=== PATIENT | female | born 1990 | race African-American/Black ===

== ENCOUNTER 2018-04-17 09:44 | Emergency (ER) | payer SELFPAY ==
[~2018-04-17] VITALS: Ht 157.5 cm; Wt 49.0 kg
[2018-04-17 09:47] VITALS: BP 128/66
[2018-04-17] MEDS ORDERED: KETOROLAC 60 MG/2 ML VIAL. IM ONE (10:30)
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
[2018-04-17] MEDS ORDERED: IBUP-1007 PO (11:00)
[2018-04-17] MEDS ORDERED: ORPH100T PO (11:00)
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
== END 2018-04-17 11:05 | disposition home or self-care (01) ==
LOC: ER 09:44
DX: M25.511 Pain in right shoulder (principal); G89.11 Acute pain due to trauma; Z91.040 Latex allergy status; V49.9XXA Car occupant (driver) (passenger) injured in unspecified traffic accident, initial encounter; Y93.89 Activity, other specified; Y92.89 Other specified places as the place of occurrence of the external cause; Y99.8 Other external cause status
CPT/HCPCS: 73030; 81025; 96372; 99283; J1885

== ENCOUNTER 2018-04-27 09:15 | Emergency (ER) | payer SELFPAY ==
[~2018-04-27 09:15] MED LIST: IBUP-1007 PO; ORPH100T PO
== END 2018-04-27 10:23 | disposition left against medical advice (07) ==
LOC: ER 09:15
DX: M79.671 Pain in right foot (principal); Z53.21 Procedure and treatment not carried out due to patient leaving prior to being seen by health care provider

== ENCOUNTER 2019-03-30 14:49 | Emergency (ER) | payer SELFPAY ==
[~2019-03-30] VITALS: Ht 157.5 cm; Wt 49.0 kg
[2019-03-30 16:39] VITALS: BP 143/67
[2019-03-30] MEDS ORDERED: predniSONE 10 MG TABLET PO ONE (16:45)
[2019-03-30] MEDS ORDERED: FAMOTIDINE 20 MG TABLET. PO ONE (16:45)
--- NOTE | 2019-03-30 16:51 | PHYS DOC ---
Past Medical History Past Medical History: No Pertinent History Past Surgical History: No Surgical History Alcohol Use: None Drug Use: None Adult General Chief Complaint Chief Complaint: ALLERGIC REACTION HPI HPI Patient is a 28 year old female who presents with states she usually only has allergic reaction such as hives and chest tightness and throat tightness and itching and burning of the eyes when she eats peanuts but not when she is around them. Today she states her boss had a big open can of peanuts in her office and she walked into her office and began having symptoms. She states she took 50 of Benadryl at 10 AM and her symptoms were way except for the eye itching and burning around her eyes. Review of Systems Review of Systems Eyes: Denies change in visual acuity, redness, or eye pain. itching [] All other systems were reviewed and found to be within normal limits, except as documented in this note. Current Medications Current Medications Current Medications Medications (Trade) Dose Ordered Sig/Oli Start Time Stop Time Status Last Admin Dose Admin Famotidine (Pepcid) 20 mg 1X ONCE 03/30/19 16:45 03/30/19 16:46 DC 03/30/19 16:49 20 MG Prednisone (Prednisone) 50 mg 1X ONCE 03/30/19 16:45 03/30/19 16:46 DC 03/30/19 16:49 50 MG Allergies Allergies Allergies Coded Allergies Type Severity Reaction Last Updated Verified peanut Allergy Severe ITCHING, 03/30/19 Yes latex Allergy Intermediate rash/hives 12/11/14 No Physical Exam Physical Exam Constitutional: Well developed, well nourished, no acute distress, non-toxic appearance. [] HENT: Normocephalic, atraumatic, bilateral external ears normal, oropharynx moist, no oral exudates, nose normal. [] Eyes: PERRLA, EOMI, conjunctiva normal, no discharge. Redness around eyes bilaterally. [] Neck: Normal range of motion, no tenderness, supple, no stridor. [] Cardiovascular:Heart rate regular rhythm, no murmur [] Lungs & Thorax: Bilateral breath sounds clear to auscultation [] Abdomen: Bowel sounds normal, soft, no tenderness, no masses, no pulsatile masses. [] Skin: Warm, dry, no erythema, no rash. [] Back: No tenderness, no CVA tenderness. [] Extremities: No tenderness, no cyanosis, no clubbing, ROM intact, no edema. [] Neurologic: Alert and oriented X 3, normal motor function, normal sensory function, no focal deficits noted. [] Psychologic: Affect normal, judgement normal, mood normal. [] Current Patient Data Vital Signs Vital Signs Date Time Temp Pulse Resp B/P (MAP) Pulse Ox O2 Delivery O2 Flow Rate FiO2 03/30/19 16:39 98.4 85 18 143/67 (92) 97 Room Air 98.4 EKG EKG [] Radiology/Procedures Radiology/Procedures [] Course & Med Decision Making Course & Med Decision Making Patient denies nausea, vomiting, abdominal pain, dizziness, syncope, throat tightness, throat itching, mouth swelling, hives, shortness of breath, chest pain, visual changes, numbness or tingling. Lungs are clear to auscultation all lobes. Ambulatory with steady gait. Vital signs within normal limits. There is no facial swelling, mouth swelling, tongue swelling, throat swelling, hives on her body, rashes, swelling. She has no swelling of her eyes. there is redness and irritation around the eyes from her scratching and rubbing her eyes. Conjunctivae is normal. There is no drainage from the eyes. Denies any visual changes. Patient states she did start to feel much better after she took the Benadryl but still thought she should come in because her eyes are very itchy. I have ordered Pepcid and prednisone. Patient states she is feeling better after medications are given. She states her symptoms have resolved. Dragon Disclaimer Dragon Disclaimer This electronic medical record was generated, in whole or in part, using a voice recognition dictation system. Departure Departure Impression: Primary Impression: Allergic reaction Disposition: HOME, SELF-CARE Condition: STABLE Referrals: NO PCP (PCP) Patient Instructions: Anaphylactic Reaction, [id number], Food Allergy and Anaphylaxis Additional Instructions: Follow-up her primary care provider. Take medications as prescribed. Scripts Diphenhydramine Hcl (BENADRYL) 25 Mg Capsule 1 CAP PO Q6HRS for 30 Days, #120 CAP 0 Refills Prov: DILIP STANTON [employer] SALES [employer]SULTANT 03/30/19 Famotidine (PEPCID) 20 Mg Tablet 20 MG PO BID, #20 TAB Prov: DILIP STANTON [employer] SAL[employer] CONSULTANT 03/30/19 Methylprednisolone (MEDROL) 4 Mg Tab.ds.pk 1 PKG PO UD, #1 PKG Prov: DILIP STANTON APRN 03/30/19 Epinephrine (EPIPEN 2-INDRA) 0.3 Mg/0.3 Ml Auto.injct 1 SYR IM ONCE PRN for ANAPHYLAXIS for 1 Day, #1 PACKET 0 Refills Prov: DILIP STANTON APRN 03/30/19 Problem Qualifiers Primary Impression: Allergic reaction Encounter type: initial encounter Qualified Codes: T78.40XA - Allergy, unspecified, initial encounter DILIP STANTON APRN Mar 30, 2019 16:51
[2019-03-30] MEDS ORDERED: EPIPEN 2-P0.3 MG/0.3 IM (17:35)
[2019-03-30] MEDS ORDERED: DIPH25CA58 PO (17:35)
[2019-03-30] MEDS ORDERED: FAMO-63 PO (17:35)
[2019-03-30] MEDS ORDERED: METH4TAB2 PO (17:35)
== END 2019-03-30 17:38 | disposition home or self-care (01) ==
LOC: ER 14:49
DX: T78.49XA Other allergy, initial encounter (principal); R07.89 Other chest pain; L53.9 Erythematous condition, unspecified; Z91.010 Allergy to peanuts; X58.XXXA Exposure to other specified factors, initial encounter; Y93.89 Activity, other specified; Y92.89 Other specified places as the place of occurrence of the external cause; Y99.8 Other external cause status
CPT/HCPCS: 99283; J7512